=== PATIENT | female | born 1985 | race Caucasian/White ===

== ENCOUNTER → 2021-04-07 16:41 | Outpatient (CLI) | payer OTHER, SELFPAY ==
--- NOTE | ~2021-04-07 | XR_ITS ---
EXAMINATION: XR chest 2V DATE: 04/07/2021 17:02 INDICATION: Congenital pectus excavatum. TECHNIQUE: Frontal and lateral views of the chest were obtained. COMPARISON: None. FINDINGS: There is mild scarring at the lung apices. No pleural effusion or pneumothorax. The heart s ize is normal. There is dextroscoliosis of thoracic spine with spinal fixation rods. There is mild pe ctus excavatum. A Maggi bar is noted. IMPRESSION: 1. Mild pectus excavatum with Maggi bar. Reviewed, dictated and finalized at location A.
== END ==
PROVIDERS: PCP Physician Assistant; Visit Provider Physician Assistant
DX: Q67.6 Pectus excavatum (principal)
CPT/HCPCS: 71046